=== PATIENT | male | born 1975 | race African-American/Black ===

== ENCOUNTER 2016-08-30 05:01 | Emergency (ER) | payer SELFPAY ==
[~2016-08-30] VITALS: Ht 175.3 cm; Wt 77.5 kg
[2016-08-30 05:07] VITALS: BP 131/88; PULSE 101; TEMP 36.4; O2SAT 98; Ht 175.3 cm; Wt 77.5 kg
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
== END 2016-08-30 05:27 | disposition home or self-care (01) ==
LOC: EDBD 05:01 → C.EDB 05:03
DX: S60.511A Abrasion of right hand, initial encounter (principal); V89.2XXA Person injured in unspecified motor-vehicle accident, traffic, initial encounter